=== PATIENT | female | born 1990 | race Caucasian/White ===

== ENCOUNTER 2016-10-15 16:38 | Emergency (ER) | payer OTHER ==
[~2016-10-15] VITALS: Ht 165.1 cm; Wt 70.5 kg
[~2016-10-15 16:38] MED LIST: DIFL150T PO; DOCO200C PO; NORE0.3513 PO
[2016-10-15 16:40] VITALS: BP 99/67; PULSE 128; RESP 16; TEMP 98.4; O2SAT 94
[2016-10-15 17:19] LABS: BACTERIA, URINE RARE /hpf; BLOOD, URINE MOD (NEG); COMMENT (UR) CULTURE INDICATED; CULTURE IF INDICATED CULTURE INDICATED; GLUCOSE,URINE NEG (NEG); KETONE, URINE 150 mg/dL (NEG); MUCUS URINE MOD /lpf (OCC); NITRITE,URINE NEG (NEG); PH, URINE 5.5 (5.0-8.5); SQUAMOUS EPITHELIAL CELL URINE 9 /hpf (0-5); URINE COLOR YELLOW (YELLW/STRAW)
== END 2016-10-15 18:26 | disposition left against medical advice (07) ==
LOC: NED 16:38
DX: R09.89 Other specified symptoms and signs involving the circulatory and respiratory systems (principal); R82.90 Unspecified abnormal findings in urine
CPT/HCPCS: 81001; 87086; 99281